=== PATIENT | female | born 1970 | race Caucasian/White ===

== ENCOUNTER 2022-04-11 13:35 | Outpatient (CLI) | payer OTHER | END 2022-04-11 13:36 | disposition home or self-care (01) | LOC: ULT 13:35 | PROVIDERS: ATTEND Internal Medicine Cardiovascular Disease | DX: R07.9 Chest pain, unspecified (principal); I08.1 Rheumatic disorders of both mitral and tricuspid valves | CPT/HCPCS: 93306 ==

== ENCOUNTER 2022-06-26 12:53 | Outpatient (CLI) | payer OTHER | END 2022-06-26 12:54 | disposition home or self-care (01) | LOC: SCSRAD 12:53 | PROVIDERS: ATTEND Family Medicine | DX: M79.642 Pain in left hand (principal); M18.12 Unilateral primary osteoarthritis of first carpometacarpal joint, left hand ==

== ENCOUNTER 2023-08-23 14:56 | Outpatient (CLI) | payer OTHER | END 2023-08-23 14:57 | disposition home or self-care (01) | LOC: BICMAMMO 14:56 | PROVIDERS: ATTEND Family Medicine | DX: Z12.31 Encounter for screening mammogram for malignant neoplasm of breast (principal); N64.89 Other specified disorders of breast | CPT/HCPCS: 77063; 77067 ==

== ENCOUNTER 2023-08-29 13:21 | Outpatient (CLI) | payer OTHER | END 2023-08-29 13:22 | disposition home or self-care (01) | LOC: BICMAMMO 13:21 | PROVIDERS: ATTEND Family Medicine | DX: N63.10 Unspecified lump in the right breast, unspecified quadrant (principal); N64.89 Other specified disorders of breast | CPT/HCPCS: G0279 ==

== ENCOUNTER 2024-04-27 14:20 | Outpatient (CLI) | payer OTHER | END 2024-04-27 14:21 | disposition home or self-care (01) | LOC: BICMAMMO 14:20 | PROVIDERS: ATTEND Family Medicine | DX: R92.8 Other abnormal and inconclusive findings on diagnostic imaging of breast (principal); R92.321 Mammographic fibroglandular density, right breast | CPT/HCPCS: G0279 ==